=== PATIENT | female | born 1970 | race Caucasian/White ===

== ENCOUNTER → 2016-09-27 | Outpatient (CLI) | payer OTHER ==
[~2016-09-27] MED LIST: ASPIRIN EC81 M1 PO; ASPIRIN PO; ASPIRIN81 M2 PO; CHANTIX; CIPRO PO; COUMADIN; DARVOCET-N 1001 TAB; FLEXERIL10 MG PO; INDOCIN SR75 MG; KEFLEX; KEFLEX500 MG PO; KETOPROFEN PO; LIPITOR; LORTAB 5/500 TA1 TA1 PO; LORTAB 7.5-5001 TAB; LOW DOSE ASPIRI81 M1 PO; MUCINEX D ER T1 EAC1 PO; MUCINEX FAST-M1 EACH; NEURONTIN; NITROGLYGERIN0.4 MG SL; NORCO1 TAB 10/3 PO; ORUDIS75 M1 PO; SIMVASTATIN40 MG PO; ULTRAM; ULTRAM PO; ZOCOR PO; ZOLOFT
--- NOTE | ~2016-09-27 | MR17 ---
[facility]. [facility] A Service of [facility] & [facility] RADIOLOGY TEXT RESULTS PATIENT: SARIAH DINH LOCATION: [facility] : [birth year] UNIT #: [id number] AGE: [address]: Micheal Vaca II, MD SEX: F ORDER DR: [id number] [place] [id number] O MR#: [id number] Acc #: [id number] NAME: SARIAH DINH : 1970 SEX: F STUDY DATE/TIME: 09/27/2016 11:20 UNIT: [facility] ROOM: STUDY DESCRIPTION: MR Brain WWo Contrast Attending Physician: Micheal Vaca II., M.D. Referring Physician: Micheal Vaca II., M.D. Ordering Physician: Micheal Vaca II., M.D. [facility] RE[facility] This report is preliminary unless electronic signature is present. EXAM Brain MRI with and without contrast HISTORY Frequent falling recently increasing. Right facial numbness for the past 10 years. Generalized fatigue. Additional history of ovarian cancer. TECHNIQUE Multiplanar imaging of the brain was performed with and without contrast. 20 mL of MultiHance was used. FINDINGS Diffusion weighted imaging is normal. There is no evidence of recent infarct. The routine brain images show normal ventricular size. There are a few foci of bright FLAIR signal in the frontal white matter bilaterally. This was also seen on the previous exam. There is no evidence of progressive white matter ischemia. Mild increased signal is also seen in the mid haroldo unchanged from the previous exam. There is no evidence of mass lesion, hemorrhage or edema. On the postcontrast images, no abnormal enhancement is seen. Extraaxial structures are unremarkable. IMPRESSION Nonspecific small white matter signal abnormalities are seen in the frontal white matter and mid haroldo likely from chronic deep white matter ischemia or perhaps previous head injury. They are unchanged from the previous examination. No acute findings. No change from the previous scan of 11/11/2014. Dictated by... Avni Mueller M.D. [facility] A Service of [facility] RADIOLOGY TEXT RESULTS PATIENT: SARIAH DINH LOCATION: [facility] : [birth year] UNIT #: [id number] AGE: [address]: Micheal Vaca II, MD SEX: F ORDER DR: THIS IS AN ELECTRONICALLY VERIFIED REPORT Avni Mueller M.D. at 09/28/2016 5:04 PM GIL/abdias TD: 09/28/2016 12:09 JOB #: [id number] [facility]ENTER REPORT Page 1 of 1
== END | disposition home or self-care (01) ==
LOC: SMRI 10:16
DX: R20.0 Anesthesia of skin (principal); R90.82 White matter disease, unspecified
CPT/HCPCS: 70553; A9581